=== PATIENT | female | born 1945 | race Caucasian/White ===

== ENCOUNTER 2021-02-19 17:20 | Inpatient (IN) | payer MEDICARE ==
[~2021-02-19] VITALS: Ht 167.6 cm; Wt 56.7 kg
[2021-02-19] MEDS ORDERED: QUET25TA PO (18:20)
[2021-02-19] MEDS ORDERED: LORA-258 PO (18:20)
[2021-02-19] MEDS ORDERED: BLOOD SUGAR DIAGNOSTIC 1 EACH STRIP IN ONE (20:00)
[2021-02-19] MEDS ORDERED: MAGNESIUM HYDROXIDE 30 ML UDC PO PRN (20:00)
[2021-02-19] MEDS ORDERED: ACETAMINOPHEN 325 MG TABLET PO PRN (20:00)
[2021-02-19] MEDS ORDERED: MAG HYDROX/AL HYDROX/SIMETH 30 ML UDC PO PRN (20:00)
[2021-02-19] MEDS ORDERED: LORAZEPAM 0.5 MG TABLET PO PRN (20:00)
[2021-02-19 20:19] VITALS: BP 157/93
[2021-02-19] MEDS ORDERED: LORAZEPAM 1 MG TABLET PO PRN (23:00)
--- NOTE | 2021-02-20 01:03 | NUR ---
GPS RN NOTES: PER HOLD PATIENT WAS CONFUSED, DISORGANIZED, DISORIENTED, TALKING TO SELF, AGGRESSIVE TOWARDS STAFF, VERBALLY ABUSIVE TO STAFF MEMBER, HITTING STAFF WITH HER PURSE, TELLING STAFF THAT THEY ARE COMING TO KILL STAFF MEMBER, NON COMPLIANT WITH MEDICATION, NOT RESPONDING TO REDIRECTION, PARANOID, DELUSIONAL, HAS POOR INSIGHT, POOR JUDGEMENT ANXIOUS AND RESTLESS. UPON FACE TO FACE EVALUATION PATIENT WAS CONFUSED, DISORGANIZED, DISORIENTED, RESTLESS, AGGRESSIVE, HITTING STAFF MEMBER ON THE CHEST, AGITATED, UNCOOPERATIVE, VERY DIFFICULT TO REDIRECTION. PATIENT HAS UNSTEADY GAIT, HIGH FALL RISK. BLADDER AND BOWEL INCONTINENT. PATIENT WAS ADVISED OF HER HOLD. PATIENT IS UNDER THE PSYCH CARE OF DR. MANCIA AND THE MEDICAL CARE OF DR. BOND. PATIENT HANDBOOK GIVEN WITH PATIENT'S RIGHTS AND GUIDE TO PRESCRIPTIONS. PATIENT BELONGINGS WERE INVENTORIED AND CHECKED FOR CONTRABAND. DENIES PAIN OR DISCOMFORT AT THIS TIME. SKIN ASSESSMENT DONE AND WOUND CARE CONSULT ORDERED. PT EVAL CONSULTATION ORDERED. BED IN LOWEST POSITION AND LOCKED WITH SIDE RAILS UP X2. BED ALARM ON AND CALL LIGHT WITHIN REACH. FLUID AND SNACKS GIVEN TOLERATED. WILL CONTINUE TO MONITOR Q15MIN ROUNDS FOR SAFETY, MOOD AND BEHAVIOR.
--- NOTE | 2021-02-20 06:52 | NUR ---
GPS RN CLOSING NOTES: PATIENT IS SITTING IN REAL CHAIR IN HALLWAY. PATIENT SLEPT 1HR THIS SHIFT. NO S/S OF DISTRESS. RESPIRATION EVEN AND UNLABORED WITH EQUAL RISE AND FALL OF THE CHEST ON ROOM AIR. ALL PATIENT CARE NEEDS HAVE BEEN MET ANTICIPATED. WILL CONTINUE TO MONITOR FOR SAFETY, MOOD AND BEHAVIOR AND ENDORSE TO AM SHIFT
[2021-02-20 08:00] VITALS: BP 138/90
--- NOTE | 2021-02-20 08:32 | NUR ---
WOUND CARE CONSULT: PER NURSING STAFF, PT BECOMES AGITATED EASILY. PT SITTING IN CHAIR AT THIS TIME WEARING SLIPPER SOCKS. SPOKE WITH PT REGARDING HER LONG, CURLING TOENAILS, PRESENT ON ADMISSION IN PHOTO. PT STATES WILL SEE DPM HERE BUT NOT TODAY. DR ROY NOTIFIED. RECOMMENDATIONS MADE FOR SKIN PROTECTION. DISCUSSED WITH NURSING STAFF. MD IN AGREEMENT WITH PLAN OF CARE.
[2021-02-20] MEDS ORDERED: Z GUARD REMEDY 2 OZ OINT TP PRN (09:00)
[2021-02-20] MEDS: DIVALPROEX SODIUM 125 MG CAP.SPRINK PO SCH ×2 (13:10→18:19)
--- NOTE | 2021-02-20 13:10 | NUR ---
[facility]
[2021-02-20 16:00] VITALS: BP 153/84
[2021-02-20 20:39] LABS: ALBUMIN 4.3 g/dL (3.4-5.0); BILIRUBIN,TOTAL 0.9 mg/dL (0.2-1.0); CALCIUM, SERUM 10.4 mg/dL (8.5-10.1); CHOLESTEROL 262 mg/dL (<200); CREATININE 0.9 mg/dL (0.6-1.3); HDL CHOLESTEROL 84 mg/dL (40-60); LDL 147 mg/dL (0-99); POTASSIUM 4.1 mmol/L (3.5-5.1); TOTAL PROTEIN, SERUM 7.9 g/dL (6.4-8.2); TRIGLYCERIDES 74 mg/dL (30-150)
[2021-02-20 20:44] VITALS: BP 134/75
[2021-02-20] MEDS: QUETIAPINE FUMARATE 25 MG TABLET PO SCH (21:20)
[2021-02-21 08:00] VITALS: BP 116/68
[2021-02-21] MEDS: DIVALPROEX SODIUM 125 MG CAP.SPRINK PO SCH ×2 (09:36→16:08)
--- NOTE | 2021-02-21 15:13 | NUR ---
Family Contact: VALERIE called Cheri Dias ([phone]) and left a voicemail stating that the VALERIE would like to discuss the pts treatment. Addendum: 02/21/21 at 1627 by VALERIE ERNST ([phone])
--- NOTE | 2021-02-21 15:14 | NUR ---
[facility] Contact: SW contacted [facility] ([phone]) and spoke to Belem (ext [phone]) and discussed that the pt is no longer appropriate for their facility and received some collateral information.
[2021-02-21 16:00] VITALS: BP 115/76
--- NOTE | 2021-02-21 16:00 | NUR ---
Initial Discharge Plan: Pt currently resides at [facility] located at [address] , [place], [place] [address]; ([phone]). Per Belem at the facility, pt may not be able to return depending on her needs. SW will work with the pt and the MD regarding appropriate discharge planning. SW will form a safe and proper discharge.
[2021-02-21 20:08] VITALS: BP 100/63
[2021-02-21] MEDS: QUETIAPINE FUMARATE 25 MG TABLET PO SCH (21:17)
[2021-02-22 08:00] VITALS: BP 106/64
[2021-02-22] MEDS: DIVALPROEX SODIUM 125 MG CAP.SPRINK PO SCH ×2 (08:18→16:22)
--- NOTE | 2021-02-22 09:00 | NUR ---
RN NOTE- PT CONFUSED DISORGANIZED REFUSING RX, PO INTAKE FAIR W ASSIST, POOR EYE CONTACT INTERNALLY PREOCCUPIED,
--- NOTE | 2021-02-22 10:54 | NUR ---
DPOA/Family Contact: Pts DPOA/SON Cheri Dias ([phone]) called the SW and stated that he wanted information on the pts treatment. SW went over the pts diagnosis and medications and informed him that once the pt is considered stable we will discharge her. Pts son stated that he does not want her to return to [facility] and is working with a placement agency to place the pt elsewhere. SW stated that she will assist as much as she can.
[2021-02-22] MEDS: ENSURE ENLIVE 237 ML LIQUID (VANILLA) PO SCH ×2 (12:59→16:22)
[2021-02-22 16:00] VITALS: BP 115/89
--- NOTE | 2021-02-22 16:34 | NUR ---
RN NOTE- REFUSED RX AGAIN. DISORGANIZED INTERNALLY PREOCCUPIED. REALITY ORIENTATION
[2021-02-22 19:59] VITALS: BP 128/86
[2021-02-22] MEDS: QUETIAPINE FUMARATE 25 MG TABLET PO SCH (21:22)
[2021-02-23 08:00] VITALS: BP 122/62
[2021-02-23 08:06] LABS: CREATININE 0.9 mg/dL (0.6-1.3); POTASSIUM 5.1 mmol/L (3.5-5.1)
[2021-02-23] MEDS: ENSURE ENLIVE 237 ML LIQUID (VANILLA) PO SCH ×3 (08:29→16:19)
[2021-02-23] MEDS: DIVALPROEX SODIUM 125 MG CAP.SPRINK PO SCH ×2 (08:29→16:58)
--- NOTE | 2021-02-23 16:34 | NUR ---
RN-CO: Patient refused in and out catheterization for UA test. Encouraged several times but still refused.
[2021-02-23 20:03] VITALS: BP 129/79
[2021-02-23] MEDS: QUETIAPINE FUMARATE 25 MG TABLET PO SCH (21:07)
--- NOTE | 2021-02-24 04:23 | NUR ---
RN-NOTES : UNABLE TO OBTAIN URINE SPECIMEN , PT. REFUSED IN AND OUT CATHETERIZATION FOR UA TEST, ENCOURAGED SEVERAL TIME , BUT PT. STRONGLY REFUSED, PT. BEHAVIOR UNCOOPERTIVE , ANXIOUS , ATIVAN OFFERED,PT. REFUSED , CHARGE NURSE MADE AWARE , WILL CONUTNITY WITH CARE.
[2021-02-24 08:00] VITALS: BP 125/57
[2021-02-24] MEDS: ENSURE ENLIVE 237 ML LIQUID (VANILLA) PO SCH ×3 (08:13→16:23)
[2021-02-24] MEDS: DIVALPROEX SODIUM 125 MG CAP.SPRINK PO SCH ×2 (08:50→16:32)
--- NOTE | 2021-02-24 09:21 | NUR ---
RN-CO: DR MARQUES IS AWRE ABOUT THE BUN 30. I ENCOURAGED PT TO TAKE FLUIDS AND INSTRUCTED THE CNAS TO OFFER FLUIDS Q 2 HOURS.
--- NOTE | 2021-02-24 12:57 | NUR ---
RN-CO: PATIENT ONLY DRINK 20% OF ENSURE AT LUNCH TIME. HOWEVER I OFFERED WATER TO HER.
--- NOTE | 2021-02-24 14:06 | NUR ---
RNTerellCO: OFFERED WATER TO PT.
[2021-02-24 16:00] VITALS: BP 117/60
[2021-02-24 20:00] VITALS: BP 140/93
[2021-02-24 20:35] LABS: BILIRUBIN,URINE NEGATIVE (NEGATIVE); COLOR,URINE YELLOW (YELLOW); LEUKOCYTE ESTERASE ,URINE NEGATIVE (NEGATIVE); NITRITE, URINE NEGATIVE (NEGATIVE); PH,URINE 5.5 (5.0-8.0); PROTEIN,URINE NEGATIVE (NEGATIVE); UGLUCOSE NEGATIVE (NEGATIVE)
[2021-02-24 20:42] LABS: BACTERIA,URINE 1+ /HPF (None Seen); SQUAMOUS EPITHELIAL CELL,UR 0-2 /HPF (None Seen); URINE AMORPHOUS URATE Few /HPF (None Seen); WBC,URINE 0-2 /HPF (0-3)
[2021-02-24] MEDS: QUETIAPINE FUMARATE 25 MG TABLET PO SCH ×2 (21:07→21:16)
--- NOTE | 2021-02-24 21:14 | NUR ---
GPS-RN NOTES: MEDICATION REFUSAL PATIENT SPIT OUT SCHEDULED SEROQUEL DOSE FOR TONIGHT. EDUCATED PATIENT REGARDING MEDICATION COMPLIANCE BUT PATIENT CONTINUED TO REFUSE. WILL CONTINUE TO MONITOR. Addendum: 02/25/21 at 0015 by EDITH MORRISSEY RN SPIT OUT MEDICATION
--- NOTE | 2021-02-24 22:00 | NUR ---
GPS-RN NOTES: PATIENT REFUSED WEEKLY SKIN BODY ASSESSMENT.
[2021-02-25 08:00] VITALS: BP 112/56
[2021-02-25] MEDS: DIVALPROEX SODIUM 125 MG CAP.SPRINK PO SCH ×2 (08:26→17:00)
[2021-02-25] MEDS: ENSURE ENLIVE 237 ML LIQUID (VANILLA) PO SCH ×3 (08:27→17:21)
--- NOTE | 2021-02-25 10:07 | NUR ---
DPOA/Family Contact: Pts DPOA/SON Cheri Dias ([phone]) called the SW and stated that he spent the weekend looking at memory care facilities as well as board and care placements. He stated that he was not sure what would be the most appropriate placement for the pt and SW stated that the pt should start in memory care and if she does really well she can step down to a board and care. Pts son stated that was acceptable and stated that he would have the placement agency that he is working with call the SW to arrange the discharge.
--- NOTE | 2021-02-25 14:25 | NUR ---
Placement Agency Contact: SW contacted Marina Saha ([phone]) from [facility] and discussed the pts placement needs and the timeline for her discharge. She stated that she will send an email to the SW regarding some options.
[2021-02-25 16:00] VITALS: BP 117/86
[2021-02-25 20:00] VITALS: BP 122/90
[2021-02-25] MEDS: QUETIAPINE FUMARATE 25 MG TABLET PO SCH (21:27)
[2021-02-25] MEDS: ZOLPIDEM TARTRATE 5 MG TABLET PO PRN (22:34)
--- NOTE | 2021-02-25 22:34 | NUR ---
GPS-RN NOTES: INSOMNIA PATIENT IS UNABLE TO SLEEP. PRN AMBIEN 5MG PO GIVEN. WILL CONTINUE TO MONITOR.
[2021-02-26 08:00] VITALS: BP 100/59
[2021-02-26] MEDS: ENSURE ENLIVE 237 ML LIQUID (VANILLA) PO SCH ×4 (09:00→17:27)
--- NOTE | 2021-02-26 10:27 | NUR ---
VERY GROGGY AND UNABLE TO ADMINISTER MEDS.
[2021-02-26] MEDS: DIVALPROEX SODIUM 125 MG CAP.SPRINK PO SCH ×3 (11:16→17:27)
[2021-02-26 19:46] LABS: CALCIUM, SERUM 9.4 mg/dL (8.5-10.1); CREATININE 0.8 mg/dL (0.6-1.3); POTASSIUM 4.4 mmol/L (3.5-5.1)
[2021-02-26 20:00] VITALS: BP 125/67
[2021-02-26] MEDS: QUETIAPINE FUMARATE 25 MG TABLET PO SCH ×2 (21:25→21:41)
--- NOTE | 2021-02-26 22:00 | NUR ---
GPS-RN NOTES: MEDICATION REFUSAL PATIENT SPIT OUT SCHEDULED MEDICATION SEROQUEL DOSE FOR TONIGHT. EDUCATED PATIENT REGARDING MEDICATION COMPLIANCE BUT PATIENT CONTINUED TO REFUSE. WILL CONTINUE TO MONITOR.
[2021-02-27] MEDS: ZOLPIDEM TARTRATE 5 MG TABLET PO PRN (00:01)
--- NOTE | 2021-02-27 00:01 | NUR ---
GPS-RN NOTES: INSOMNIA PATIENT IS UNABLE TO SLEEP. PRN AMBIEN 5MG PO GIVEN. WILL CONTINUE TO MONITOR.
[2021-02-27 08:00] VITALS: BP 97/64
[2021-02-27] MEDS: DIVALPROEX SODIUM 125 MG CAP.SPRINK PO SCH ×2 (08:43→17:00)
[2021-02-27] MEDS: ENSURE ENLIVE 237 ML LIQUID (VANILLA) PO SCH ×3 (08:43→17:02)
--- NOTE | 2021-02-27 13:47 | NUR ---
Placement Agency Contact: SW contacted Marina Saha ([phone]) from [facility] and left a voicemail stating that she wanted to follow up and that the SW did not receive any emails.
--- NOTE | 2021-02-27 13:48 | NUR ---
Family Contact: VALERIE contacted the pts son, Cheri Dias ([phone]), and informed him that the pt is going to be ready to be discharged soon and that the SW would like to follow up on the pts discharge. He stated that he was at [facility] for a tour and they accepted the pt. He stated that he will work with them on figuring out when the pt can be released to them. VALERIE also went over the transportation with the pt.
--- NOTE | 2021-02-27 13:57 | NUR ---
Placement Agency Contact: Scottrobi Maria A ([phone]) from [facility] contacted the and stated that she was having [place] fax a physicians report to the . She stated that she is aiming for a Thursday discharge.
[2021-02-27 16:00] VITALS: BP 131/75
--- NOTE | 2021-02-27 17:03 | NUR ---
GPS/RN NOTES PATIENT REFUSED TO TAKE THE SCHEDULE DEPAKOTE 125 MG 1 CAP EXPLAINED THE RISK AND BENEFITS. MEDS WAS OPEN AND WASTED.
--- NOTE | 2021-02-27 17:13 | NUR ---
@1700, ATTEMPTED XRAY. PT UNCOOPERATIVE AND REFUSING XRAY.
--- NOTE | 2021-02-27 17:20 | NUR ---
GPS/RN NOTES PATIENT REFUSED TO TAKE CHEST X-RAY, EXPLAINED THE RISK AND BENEFITS. MD WAS AWARE.
[2021-02-27 20:58] VITALS: BP 125/82
[2021-02-27] MEDS: QUETIAPINE FUMARATE 25 MG TABLET PO SCH (21:10)
[2021-02-28 08:00] VITALS: BP 98/55
[2021-02-28] MEDS: DIVALPROEX SODIUM 125 MG CAP.SPRINK PO SCH ×2 (08:40→16:53)
[2021-02-28] MEDS: ENSURE ENLIVE 237 ML LIQUID (VANILLA) PO SCH ×3 (08:40→16:53)
--- NOTE | 2021-02-28 09:00 | NUR ---
RN NOTE-PT CONFUSED LETHARGIC MUMBLING TO SELF, RAMBLING SENTENCE FRAGMENTS, MED COMPLIANT , PO INTAKE FAIR W ASSIST, NEEDS CONSISTENT HELP W ADLS CARE
--- NOTE | 2021-02-28 12:21 | NUR ---
Family Contact: VALERIE contacted the pts son, Cheri Dias ([phone]), in response to his voicemail and informed him that the pt can be discharged on Thursday if that is more convenient for the facility.
[2021-02-28 16:00] VITALS: BP 124/67
[2021-02-28 20:00] VITALS: BP 131/82
[2021-02-28 20:14] VITALS: BP 131/82
--- NOTE | 2021-02-28 20:48 | NUR ---
RN NOTE PER AM RN REPORT, CXR WAS DONE TODAY BUT HAS NOT RESULTED YET. WILL FOLLOW UP.
[2021-02-28] MEDS: QUETIAPINE FUMARATE 25 MG TABLET PO SCH (21:49)
[2021-03-01 08:00] VITALS: BP 99/58
[2021-03-01] MEDS: ENSURE ENLIVE 237 ML LIQUID (VANILLA) PO SCH ×3 (08:14→16:04)
[2021-03-01] MEDS: DIVALPROEX SODIUM 125 MG CAP.SPRINK PO SCH ×2 (08:14→16:05)
--- NOTE | 2021-03-01 09:00 | NUR ---
RN NOTE- PUSHING FOOD AND FLUIDS. PT CONFUSED LETHARGIC MUMBLING TO SELF, RAMBLING SENTENCE FRAGMENTS, MED COMPLIANT ,PO INTAKE FAIR W ASSIST, NEEDS CONSISTENT HELP W ADLS CARE BECOMES COMBATIVE DURING ADLS CARE
--- NOTE | 2021-03-01 15:28 | NUR ---
Assisted Living Contact: VALERIE faxed a physicians report and a COVID test to [facility] with attn to Analilia to the fax number: [phone].
--- NOTE | 2021-03-01 15:32 | NUR ---
Family Contact: SW contacted the pts son, Cheri Dias ([phone]), and left a voicemail informing him that the pt is going to be discharged on Thursday.
[2021-03-01 15:59] VITALS: BP 117/62
[2021-03-01 20:00] VITALS: BP 137/80
--- NOTE | 2021-03-01 20:19 | NUR ---
GPS RN NOTES PT ON KENN CHAIR BY NURSES STATION. CONTINUES TO BE CONFUSED AND RAMBLING, MED COMPLIANT. VITALS STABLE. ENCOURAGE FOR MORE PO INTAKE
[2021-03-01 20:21] VITALS: BP 133/93
[2021-03-01] MEDS: QUETIAPINE FUMARATE 25 MG TABLET PO SCH (21:37)
[2021-03-01] MEDS: ZOLPIDEM TARTRATE 5 MG TABLET PO PRN (23:53)
[2021-03-02 08:00] VITALS: BP 106/59
[2021-03-02] MEDS: DIVALPROEX SODIUM 125 MG CAP.SPRINK PO SCH ×2 (08:27→16:24)
[2021-03-02] MEDS: ENSURE ENLIVE 237 ML LIQUID (VANILLA) PO SCH ×3 (08:27→16:24)
--- NOTE | 2021-03-02 15:26 | NUR ---
GPS RN NOTE: PATIENT RESTLESS, ANXIOUS GETTING AGITATED ATIVAN 1 MG PO PRN GIVEN PER ORDER WILL CONTINUE MONITORING
[2021-03-02 16:00] VITALS: BP 143/74
[2021-03-02 19:43] VITALS: BP 163/89
[2021-03-02 19:57] VITALS: BP 163/89
[2021-03-02 21:10] VITALS: BP 142/82
[2021-03-02] MEDS: QUETIAPINE FUMARATE 25 MG TABLET PO SCH (22:02)
--- NOTE | 2021-03-02 22:15 | NUR ---
RN NOTE SCHEDULED MEDICINE WAS GIVEN WITH ICE CREAM, PATIENT HAD 1/2 CUP OF ICE CREAM. PATIENT HAS POOR PO INTAKE. CONTINUING TO ENCOURAGE TO HAVE PO FLUIDS TOLERATED.
--- NOTE | 2021-03-02 23:27 | NUR ---
RN NOTE: PATIENT WAS NOTED TO BE SLEEPY IN A REAL CHAIR, ASSISTED HER TO BED, CHANGED HER DIAPER & MADE HER COMFORTABLE, BUT PATIENT REFUSED TO STAY IN BED & STARTED GETTING AGITATED, STAYED WITH THE PATIENT TO PROVIDE REDIRECTIONS TO REST & STAY IN BED DUE TO CONFUSION. PATIENT CONTINUED TO REFUSE TO STAY IN BED, GOT AGITATED, RESTLESS & ATTEMPTED TO STAND UP WITH UNSTEADY GAIT. PATIENT IS A HIGH FALL RISK. ASSISTED HER BACK TO REAL CHAIR FOR SAFETY & FALL PREVENTION. PATIENT IS UNABLE TO UNDERSTAND EXPLANATIONS OR SAFETY AWARENESS INSTRUCTIONS DUE TO BEING EXTREMELY CONFUSED. OFFERED WATER, PATIENT HAD 1/2 CUP OF WATER & THREW THE REST OF WATER ON HER BED. WILL CONTINUE TO ENCOURAGE PO FLUIDS TOLERATED.
[2021-03-03 08:00] VITALS: BP 110/59
[2021-03-03] MEDS: DIVALPROEX SODIUM 125 MG CAP.SPRINK PO SCH ×2 (09:00→17:18)
[2021-03-03] MEDS: ENSURE ENLIVE 237 ML LIQUID (VANILLA) PO SCH ×3 (09:00→17:18)
--- NOTE | 2021-03-03 09:14 | NUR ---
RN NOTE PATIENT IS TO ASLEEP TO HAVE HER MORNING MEDICATIONS DEPAKOTE AND ENSURE, AFTER PATIENT IS MORE AWAKE WILL REASSESS AND ADMINISTER SCHEDULED MEDICATION.
[2021-03-03 16:09] VITALS: BP 136/75
[2021-03-03] MEDS: QUETIAPINE FUMARATE 25 MG TABLET PO SCH (21:30)
--- NOTE | 2021-03-03 21:46 | NUR ---
GPS RN NOTE PATIENT IN GERICHAIR. A/OX1. NOTED WITH CONFUSION AND RAMBLING . PATIENT TOOK PORTION OF DEPAKOTE ORDERED. PATIENT BECAME AGITATED, ATTEMPTING TO HIT RN, AND THREW THE REST MEDICATION AND FOOD ONTO THE FLOOR. ALLOWED PATIENT TO VERBALIZED FEELINGS.
--- NOTE | 2021-03-03 22:00 | NUR ---
GPS RN NOTE PATIENT REFUSED V/S X3. PATIENT COMBATIVE TOWARDS STAFF.
--- NOTE | 2021-03-04 06:43 | NUR ---
GPS RN NOTE PATIENT SLEEPING IN BED. TOES ON BILATERAL FOOT NOTED TO BE YELLOW, CURLED, AND OVERGROWN. TOOK PICTURE AND PUT IN CHART. WILL ENDORSE RN TO CONTINUE TREATMENT ORDERED.
[2021-03-04 08:00] VITALS: BP 113/77
[2021-03-04] MEDS: ENSURE ENLIVE 237 ML LIQUID (VANILLA) PO SCH (08:00)
[2021-03-04] MEDS: DIVALPROEX SODIUM 125 MG CAP.SPRINK PO SCH (08:01)
--- NOTE | 2021-03-04 10:12 | NUR ---
Discharge Note: Pt will be discharged to [facility] located at [address] [place] [id number]; . Pt will be transported via the facility pickup at 11AM. Pts son, Arun ([phone]), was informed and made aware of this discharge. Upon discharge, the pt appears to be in a euthymic mood and presents with a distressed affect. Pt denies both suicidal and homicidal ideation as well as auditory and visual hallucinations. Pt appears to be well groomed and appropriately dressed. Pt appears to be ambulatory with a steady gait. Pt will be under the care of her psychiatrist, Dr. Nilo Toth, located at [address], [place] [address]; ; fax of records was sent to: ([phone]). Pt will also be under the care of her access control specialist, Dr. Taylor, [place] at [address] [place], [address]; . The multidisciplinary exit care form was done, printed, signed, and given to the patient.
== END 2021-03-04 11:30 | DRG 885 ==
LOC: GPS 18:43
PROVIDERS: ADMIT Psychiatry & Neurology Psychiatry; ATTEND Internal Medicine
DX: F29 Unspecified psychosis not due to a substance or known physiological condition (principal); N17.0 Acute kidney failure with tubular necrosis; F03.91 Unspecified dementia, unspecified severity, with behavioral disturbance; F41.9 Anxiety disorder, unspecified; Z73.6 Limitation of activities due to disability; Z79.899 Other long term (current) drug therapy; F32.9 Major depressive disorder, single episode, unspecified; Z91.14 Patient's other noncompliance with medication regimen; Z91.81 History of falling; R79.89 Other specified abnormal findings of blood chemistry; R27.8 Other lack of coordination; R53.1 Weakness
CPT/HCPCS: 36415; 71045-TC; 80048-TC; 80053-TC; 80061-TC; 81001; 82962-TC; 87081-TC; 97116-TC; 97530-TC

== ENCOUNTER 2021-03-08 23:56 | Inpatient (IN) | payer MEDICARE, BC ==
[~2021-03-08] VITALS: Ht 167.6 cm; Wt 56.7 kg
--- NOTE | 2021-03-08 23:59 | NUR ---
PT FROM [facility] FOR GPS ADMIT. PLACED IN GOWN, ON MONITOR, AND PULSE OX. AWAITING ER MD FOR EVAL AND ORDERS.
--- NOTE | 2021-03-09 00:05 | NUR ---
REFUSED TO HAVE TEMP TAKEN
[2021-03-09] MEDS ORDERED: OLANZAPINE 10 MG VIAL IM ONE ×2 (00:30→00:38)
[2021-03-09 00:53] LABS: BASOPHILS % (AUTO) 0.3 % (0.0-2.0); EOSINOPHILS % (AUTO) 1.8 % (0.0-6.0); HEMATOCRIT 37 % (33-45); HEMOGLOBIN 12.4 g/dL (11.5-14.8); LYMPHOCYTES % (AUTO) 28.8 % (20.0-44.0); MEAN CORPUSCULAR HGB CONC 33 g/dl (31.0-36.0); MEAN CORPUSCULAR VOLUME 92 fL (82-100); MONOCYTES # (AUTO) 0.6 /CMM (0.1-1.30); MONOCYTES % (AUTO) 9.2 % (2.0-12.0); NEUTROPHILS # (AUTO) 4.1 /CMM (1.8-8.9); NEUTROPHILS % (AUTO) 59.9 % (43.0-81.0); PLATELET COUNT (AUTO) 247 /CMM (150-450); RED BLOOD CELL COUNT(AUTO) 4.06 MIL/uL (4.0-5.2); WHITE BLOOD COUNT (AUTO) 6.9 K/uL (4.3-11.0)
--- NOTE | 2021-03-09 01:02 | NUR ---
PT PLACED ON 6040 HOLD FOR DANGER TO SELF AND GD @8932
[2021-03-09 01:11] LABS: CARBON DIOXIDE 28 mmol/L (21-32); CHLORIDE 104 mmol/L (98-107); CREATININE 0.7 mg/dL (0.6-1.3); GLUCOSE 93 mg/dL (74-106); POTASSIUM 3.6 mmol/L (3.5-5.1); SODIUM SERUM 141 mmol/L (136-145); UREA NITROGEN, BLOOD 11 mg/dL (7-18)
[2021-03-09 01:16] LABS: ALANINE AMINOTRANSFERASE 22 U/L (12-78); ALBUMIN 3.6 g/dL (3.4-5.0); ALCOHOL, BLOOD < 3 mg/dL (0-0); ALKALINE PHOSPHATASE 93 U/L (46-116); ASPARTATE AMINOTRANSFERASE 23 U/L (15-37); BILIRUBIN,DIRECT 0.2 mg/dL (0.0-0.2); BILIRUBIN,TOTAL 0.5 mg/dL (0.2-1.0); TOTAL PROTEIN, SERUM 6.6 g/dL (6.4-8.2)
[2021-03-09 01:18] LABS: ACETAMINOPHEN 0 ug/ml (10-30)
[2021-03-09] MEDS ORDERED: QUET25TA PO (01:44)
[2021-03-09] MEDS ORDERED: LORA-259 PO ×2 (01:44)
[2021-03-09] MEDS ORDERED: QUET100T PO (01:44)
[2021-03-09] MEDS ORDERED: ZOLP5TAB8 PO (01:44)
[2021-03-09] MEDS ORDERED: DIVA-78 PO (01:44)
--- NOTE | 2021-03-09 01:47 | NUR ---
REPORT GIVEN TO KENN BAXTER. WILL TRANSPORT PT TO ROOM 214.
[2021-03-09 02:40] VITALS: BP 141/82
--- NOTE | 2021-03-09 02:50 | NUR ---
RN NOTE PATIENT'S BLOOD SUGAR IS 87 MG/DL. PATIENT REFUSES TO DRINK ORANGE JUICE BUT HAD APPLE JUICE 240 ML. WILL ENCOURAGE PO FLUIDS TOLERATED.
[2021-03-09] MEDS ORDERED: MAGNESIUM HYDROXIDE 30 ML UDC PO PRN (03:00)
[2021-03-09] MEDS ORDERED: ACETAMINOPHEN 325 MG TABLET PO PRN (03:00)
[2021-03-09] MEDS ORDERED: MAG HYDROX/AL HYDROX/SIMETH 30 ML UDC PO PRN (03:00)
[2021-03-09] MEDS ORDERED: BLOOD SUGAR DIAGNOSTIC 1 EACH STRIP IN ONE (03:30)
--- NOTE | 2021-03-09 03:43 | NUR ---
RN NOTE PATIENT FINISHED 1 JELLO AT THIS TIME.
--- NOTE | 2021-03-09 03:46 | NUR ---
GPS DIRECTOR OF ASSESSMENT NOTES: READMITTED 75 Y/O FEMALE FROM [facility] ON 5150 HOLD FOR DANGER TO OTHERS & GD. PER HOLD PATIENT WAS TALKING IN CIRCLES, COULD NOT RESPOND TO COMMANDS, WAS ADDRESSING THING THAT WAS NOT VISIBLE TO SOMEONE ELSE. PATIENT'S CARE HOME [facility] REPORTS, PATIENT IS AGITATED, ANXIOUS & THROWING THINGS AT OTHERS & NOT FOLLOWING DIRECTIONS. PT. IS ON ATIVAN. UPON FACE TO FACE EVALUATION PATIENT WAS A & O X 1 ONLY, VERY CONFUSED, ANXIOUS, DISORGANIZED, DISORIENTED, RESTLESS, AGGRESSIVE, TRYING TO HIT STAFF WHILE PROVIDING CARE, AGITATED, TALKING TO HERSELF, UNCOOPERATIVE, NOT RESPONDING TO REDIRECTIONS, PARANOID, DELUSIONAL, HAS POOR INSIGHT, POOR JUDGEMENT. PATIENT HAS UNSTEADY GAIT, HIGH FALL RISK. BLADDER AND BOWEL INCONTINENT. PATIENT WAS ADVISED OF HER HOLD. PATIENT IS UNDER THE PSYCH CARE OF DR. MARKS AND THE MEDICAL CARE OF [facility]. PATIENT HANDBOOK GIVEN WITH PATIENT'S RIGHTS AND GUIDE TO PRESCRIPTIONS. PATIENT BELONGINGS WERE INVENTORIED AND CHECKED FOR CONTRABAND. DENIES PAIN OR DISCOMFORT AT THIS TIME. SKIN ASSESSMENT DONE, PICTURES TAKEN AND WOUND CARE CONSULT ORDERED. PT EVAL CONSULTATION ORDERED. BED IN LOWEST POSITION AND LOCKED WITH SIDE RAILS UP X2. BED ALARM ON AND CALL LIGHT WITHIN REACH. WILL CONTINUE TO MONITOR Q15MIN ROUNDS FOR SAFETY, MOOD AND BEHAVIOR.
[2021-03-09] MEDS ORDERED: Z GUARD REMEDY 4 OZ OINT TP PRN (04:30)
--- NOTE | 2021-03-09 04:49 | NUR ---
RN NOTE PATIENT HAD ANOTHER JELLO & CUP OF WATER, TOLERATED WELL. PATIENT NEEDS LOTS OF ENCOURAGEMENT TO ASSIST HER WITH PO INTAKE DUE TO SEVERE CONFUSION. WILL ENDORSE TO AM RN FOR CONTINUITY OF CARE.
[2021-03-09] MEDS: LORAZEPAM 0.5 MG TABLET PO PRN (05:37)
--- NOTE | 2021-03-09 05:39 | NUR ---
RN NOTE: ANXIETY PATIENT IS NOTED TO BE VERY ANXIOUS, RESTLESS, DELUSIONAL, AGITATED, BANGING ON THE REAL CHAIR TRAY. PRN ATIVAN 0.5 MG 1 TAB PO ADMINISTERED. WILL CONTINUE TO MONITOR.
--- NOTE | 2021-03-09 06:25 | NUR ---
RN NOTE PATIENT IS SITTING UP IN A REAL CHAIR, CALM & RELAXED AT THIS TIME. PATIENT REFUSES TO GO TO BED. ATTEMPTED TO PUT PATIENT IN BED BUT PATIENT GOT OUT OF BED. PATIENT HAS UNSTEADY GAIT, FALL RISK, ASSISTED BACK TO REAL CHAIR FOR SAFETY. WILL ENDORSE TO AM RN FOR CONTINUITY OF CARE.
--- NOTE | 2021-03-09 07:01 | NUR ---
RN NOTE: FAMILY NOTIFIED CALLED PATIENT'S DPOA LAURA FREED ([place]) AT [phone] & INFORMED ABOUT PATIENT'S ADMISSION AT GPS UNIT IN ROOM 214-2.
[2021-03-09 08:00] VITALS: BP 133/74
[2021-03-09] MEDS ORDERED: LORA2ORA5 PO (08:08)
[2021-03-09] MEDS ORDERED: MAGN400O6 PO (08:08)
[2021-03-09] MEDS ORDERED: DIVA250T PO (08:08)
[2021-03-09] MEDS: ENSURE ENLIVE CHOC 237 ML CAN PO SCH ×2 (08:37→17:30)
[2021-03-09] MEDS: Z GUARD REMEDY 2 OZ OINT TP SCH (10:02)
--- NOTE | 2021-03-09 12:02 | NUR ---
RN-CO: PER DR TIM CHENEY PT IS FULL CODE UNLESS AGENT WILL DECIDE.
--- NOTE | 2021-03-09 15:39 | NUR ---
Pt. refused for v/s checked.
[2021-03-09 19:55] VITALS: BP 143/74
[2021-03-09 19:56] VITALS: BP 143/74
[2021-03-09 20:00] VITALS: BP 143/74
[2021-03-09] MEDS: DIVALPROEX SODIUM 250 MG TABLET.DR PO SCH (21:00)
--- NOTE | 2021-03-09 21:15 | NUR ---
RN NOTE PATIENT WAS SEEN BY DR. MARQUES & STARTED THE PATIENT ON DEPAKOTE & SEROQUEL. ORDERS NOTED & CARRIED OUT.
--- NOTE | 2021-03-09 21:59 | NUR ---
RN NOTE: MEDICINE REFUSAL PATIENT REFUSED TO TAKE DEPAKOTE 250 MG AT 2100 X 3 DESPITE OF RISKS & BENEFITS EXPLANATIONS. PATIENT IS NON COMPLAINT & UNCOOPERATIVE & EASILY AGITATED AT THIS TIME. MEDICINE WAS WASTED PER PROTOCOL SINCE IT WAS OPENED.
[2021-03-09] MEDS: QUETIAPINE FUMARATE 100 MG TABLET PO SCH (22:35)
[2021-03-10 08:00] VITALS: BP 109/63
[2021-03-10] MEDS: ENSURE ENLIVE CHOC 237 ML CAN PO SCH ×3 (08:16→18:07)
[2021-03-10] MEDS: QUETIAPINE FUMARATE 25 MG TABLET PO SCH (09:23)
[2021-03-10] MEDS: DIVALPROEX SODIUM 250 MG TABLET.DR PO SCH ×2 (09:23→21:51)
[2021-03-10] MEDS: Z GUARD REMEDY 2 OZ OINT TP SCH (09:23)
[2021-03-10] MEDS: QUETIAPINE FUMARATE 100 MG TABLET PO SCH (21:51)
[2021-03-10] MEDS: TEMAZEPAM 7.5 MG CAPSULE PO PRN (21:52)
--- NOTE | 2021-03-10 21:53 | NUR ---
Pt c/o insomnia. Least restrictive measures ineffective. Restoril 7.5 mg po prn given as ordered. Will continue to monitor.
--- NOTE | 2021-03-10 22:55 | NUR ---
Post 1 hr Restoril effective. Pt asleep easy to arouse. Will continue to monitor.
[2021-03-11 08:00] VITALS: BP 145/90
[2021-03-11] MEDS: DIVALPROEX SODIUM 250 MG TABLET.DR PO SCH ×3 (08:28→20:51)
[2021-03-11] MEDS: Z GUARD REMEDY 2 OZ OINT TP SCH (08:28)
[2021-03-11] MEDS: ENSURE ENLIVE CHOC 237 ML CAN PO SCH ×3 (08:28→16:19)
[2021-03-11] MEDS: QUETIAPINE FUMARATE 25 MG TABLET PO SCH ×2 (08:28→13:00)
--- NOTE | 2021-03-11 11:13 | NUR ---
GPS RN NOTES PATIENT REFUSES HER LAB WORK.
--- NOTE | 2021-03-11 14:21 | NUR ---
GPS RN NOTES PATIENT WAS OK TO HAVE SEROQUEL WITH CHOCOLATE PUDDING. AFTER MEDS WERE CRUSHED AND MIXED PATIENT SAID SHE WILL NOT TAKE THEM SINCE IT POISON.
[2021-03-11 16:00] VITALS: BP 121/71
--- NOTE | 2021-03-11 16:23 | NUR ---
Family Contact: VALERIE called the pts son, Arun ([phone]), and discussed the pts placement back to [facility]. Pts son stated that he cannot have the pt be discharged when she is not stable because he is running out of placement so she needs to be stable. VALERIE stated that she will have the MD call him to discuss this.
--- NOTE | 2021-03-11 16:25 | NUR ---
Facility Contact: [facility] and [facility] Luna about the pts readmit. She stated that she will want to evaluate the pt before she is ready for discharge back to their facility. VALERIE stated that she will call her back once there is a discharge date.
--- NOTE | 2021-03-11 16:34 | NUR ---
Psychosocial Note: I, Phoebe Carroll MSW, attest to the patients previous psychosocial information dated on 02/21/21. Update On Events leading to Admission and Discharge Plan: Pt has returned to the geriatric psychiatric unit within a few days of her previous discharge date (03/04/21) to [facility]. Pt is a 75-year-old female who was readmitted to [facility] on 03/09/21 on a 5150 hold for danger to others and grave disability. Per psychiatric hold, the clinician was contacted to the ER to evaluate the pt for bizarre behavior. Upon face to face evaluation, the pt was talking in circles, could not respond to commands, was addressing thing that was not visible to anyone else. Pts assisted living reports that the pt was agitated. Pt was anxious and was throwing things at others and not following directions. Upon social service technician evaluation, pt appears to be oriented x1 (self). Pt appears to be in a depressed mood and presents with a paranoid affect. Pt was mumbling incoherent and appears to be confused and disorganized. Pt presents in a gerichair due to her aggressive outbursts. Pt appears to be unable to answer questions related to the psychosocial. Pt was unable to maintain appropriate eye contact. Pts insight and judgment appear to be impaired and the pts impulse control is poor. Pts son, Arun ([phone]), would like the pt to return to [facility]. VALERIE spoke to the as400 administrator, Luna , who stated that the pt needs to be evaluated before coming back. VALERIE will work with the pt, the pts son, and the MD regarding appropriate discharge planning. SW will form a safe and proper discharge.
[2021-03-11 20:00] VITALS: BP 136/62
[2021-03-11] MEDS: QUETIAPINE FUMARATE 100 MG TABLET PO SCH (21:00)
[2021-03-11] MEDS: TEMAZEPAM 7.5 MG CAPSULE PO PRN (22:47)
--- NOTE | 2021-03-11 22:47 | NUR ---
GPS-RN NOTES: INSOMNIA PATIENT IS UNABLE TO SLEEP. PRN RESTORIL 7.5MG PO GIVEN. WILL CONTINUE TO MONITOR.
[2021-03-12 08:00] VITALS: BP 110/69
--- NOTE | 2021-03-12 08:25 | NUR ---
WOUND CARE CONSULT: PT SLEEPING SOUNDLY AT THIS TIME. PER ADMISSION PHOTOS, PT HAS VERY LONG TOENAILS, PRESENT ON ADMISSION. DR ROY NOTIFIED OF DPM CONSULT. CURRENT JOSE JUAN SCORE IS 17. MD IN AGREEMENT WITH PLAN OF CARE.
[2021-03-12] MEDS: QUETIAPINE FUMARATE 25 MG TABLET PO SCH ×2 (08:48→12:30)
[2021-03-12] MEDS: Z GUARD REMEDY 2 OZ OINT TP SCH (08:48)
[2021-03-12] MEDS: ENSURE ENLIVE CHOC 237 ML CAN PO SCH ×3 (08:48→17:05)
[2021-03-12] MEDS: DIVALPROEX SODIUM 250 MG TABLET.DR PO SCH ×2 (08:48→21:05)
--- NOTE | 2021-03-12 09:00 | NUR ---
RN NOTE- PT CONFUSED, DISORGANIZED GARBLED UNINTELLIGIBLE SPEECH, MED COMPLIANT , QUIET
[2021-03-12 16:00] VITALS: BP 116/76
[2021-03-12 19:49] VITALS: BP 136/93
[2021-03-12] MEDS: QUETIAPINE FUMARATE 100 MG TABLET PO SCH (21:04)
[2021-03-12] MEDS: TEMAZEPAM 7.5 MG CAPSULE PO PRN (23:14)
--- NOTE | 2021-03-12 23:14 | NUR ---
GPS-RN NOTES: INSOMNIA PATIENT IS UNABLE TO SLEEP. PRN RESTORIL 7.5MG PO GIVEN. WILL CONTINUE TO MONITOR.
[2021-03-13 08:00] VITALS: BP 142/64
[2021-03-13] MEDS: ENSURE ENLIVE CHOC 237 ML CAN PO SCH ×3 (08:00→16:26)
--- NOTE | 2021-03-13 09:00 | NUR ---
RN NOTE- UNCHANGED FROM YESTERDAY. PT CONFUSED, DISORGANIZED GARBLED UNINTELLIGIBLE SPEECH, MED COMPLIANT , QUIET
[2021-03-13] MEDS: DIVALPROEX SODIUM 250 MG TABLET.DR PO SCH ×2 (09:10→21:51)
[2021-03-13] MEDS: Z GUARD REMEDY 2 OZ OINT TP SCH (09:10)
[2021-03-13] MEDS: QUETIAPINE FUMARATE 25 MG TABLET PO SCH ×2 (09:10→13:12)
--- NOTE | 2021-03-13 10:38 | NUR ---
Dr. Toth's Office Contact: Faizan ([phone]) from Dr. Toth's office contacted the SW and stated that he wanted an update on the pt so SW stated that she has not shown aggressive behavior but she is agitated here in the hospital. SW stated that she does not have a discharge date as of right now.
--- NOTE | 2021-03-13 12:08 | NUR ---
Family Contact: VALERIE called the pts son, Arun ([phone]), and informed him that the pt was discharged with psychotropic medications at the time of discharge the previous time. VALERIE stated that she will inform him and Yoko when there is a discharge date so that the pt can be assessed and discharged back.
[2021-03-13 16:00] VITALS: BP 114/88
[2021-03-13 20:00] VITALS: BP 158/81
[2021-03-13] MEDS: QUETIAPINE FUMARATE 100 MG TABLET PO SCH (21:51)
[2021-03-13] MEDS: TEMAZEPAM 7.5 MG CAPSULE PO PRN (23:11)
--- NOTE | 2021-03-13 23:11 | NUR ---
GPS-RN NOTES: INSOMNIA PATIENT IS UNABLE TO SLEEP. PRN RESTORIL 7.5MG PO GIVEN. WILL CONTINUE TO MONITOR.
[2021-03-14 08:00] VITALS: BP 108/60
[2021-03-14] MEDS: ENSURE ENLIVE CHOC 237 ML CAN PO SCH ×3 (08:44→16:27)
[2021-03-14] MEDS: QUETIAPINE FUMARATE 25 MG TABLET PO SCH ×2 (08:44→12:16)
[2021-03-14] MEDS: DIVALPROEX SODIUM 250 MG TABLET.DR PO SCH ×2 (08:44→21:39)
[2021-03-14] MEDS: Z GUARD REMEDY 2 OZ OINT TP SCH (08:45)
--- NOTE | 2021-03-14 09:00 | NUR ---
RN NOTE- PT CONFUSED, DISORGANIZED GARBLED UNINTELLIGIBLE SPEECH, MED COMPLIANT , QUIET
[2021-03-14 16:00] VITALS: BP 145/73
[2021-03-14 19:43] VITALS: BP 125/84
[2021-03-14 20:00] VITALS: BP 125/84
[2021-03-14] MEDS: QUETIAPINE FUMARATE 100 MG TABLET PO SCH (21:39)
[2021-03-15 06:37] LABS: BASOPHILS % (AUTO) 0.3 % (0.0-2.0); EOSINOPHILS % (AUTO) 2.5 % (0.0-6.0); HEMATOCRIT 39 % (33-45); HEMOGLOBIN 12.9 g/dL (11.5-14.8); LYMPHOCYTES % (AUTO) 35.6 % (20.0-44.0); MEAN CORPUSCULAR HGB CONC 33 g/dl (31.0-36.0); MEAN CORPUSCULAR VOLUME 93 fL (82-100); MONOCYTES # (AUTO) 0.5 /CMM (0.1-1.30); MONOCYTES % (AUTO) 8.9 % (2.0-12.0); NEUTROPHILS % (AUTO) 52.7 % (43.0-81.0); PLATELET COUNT (AUTO) 175 /CMM (150-450); RED BLOOD CELL COUNT(AUTO) 4.22 MIL/uL (4.0-5.2); WHITE BLOOD COUNT (AUTO) 5.6 K/uL (4.3-11.0)
[2021-03-15 07:05] LABS: BILIRUBIN,TOTAL 0.3 mg/dL (0.2-1.0); CALCIUM, SERUM 8.6 mg/dL (8.5-10.1); CREATININE 0.7 mg/dL (0.6-1.3); POTASSIUM 4.4 mmol/L (3.5-5.1); TOTAL PROTEIN, SERUM 6.1 g/dL (6.4-8.2)
[2021-03-15 08:00] VITALS: BP 157/94
[2021-03-15] MEDS: ENSURE ENLIVE CHOC 237 ML CAN PO SCH ×3 (08:11→17:20)
[2021-03-15] MEDS: DIVALPROEX SODIUM 250 MG TABLET.DR PO SCH ×2 (08:55→21:38)
[2021-03-15] MEDS: QUETIAPINE FUMARATE 25 MG TABLET PO SCH ×3 (08:55→17:20)
[2021-03-15] MEDS: Z GUARD REMEDY 2 OZ OINT TP SCH (08:56)
[2021-03-15] MEDS: LORAZEPAM 0.5 MG TABLET PO PRN (11:38)
--- NOTE | 2021-03-15 11:40 | NUR ---
RN-NOTES NOTED PATIENT AGITATED,ANXIOUS IN THE DAY ROOM. ATIVAN 0.5MG P.O GIVEN PRN ORDER. WILL CONT. MONITORING FOR SAFETY AND BEHAVIOR.
--- NOTE | 2021-03-15 13:05 | NUR ---
RN-NOTES PATIENT THE DAY ROOM UP IN THE REAL CHAIR,CALM NO ACUTE DISTRESS NOTED.
[2021-03-15 16:00] VITALS: BP 140/72
[2021-03-15 20:26] VITALS: BP 130/59
[2021-03-15] MEDS: QUETIAPINE FUMARATE 100 MG TABLET PO SCH (21:38)
[2021-03-16 08:00] VITALS: BP 135/73
[2021-03-16] MEDS: QUETIAPINE FUMARATE 25 MG TABLET PO SCH ×3 (09:32→17:08)
[2021-03-16] MEDS: ENSURE ENLIVE CHOC 237 ML CAN PO SCH ×3 (09:32→17:08)
[2021-03-16] MEDS: DIVALPROEX SODIUM 250 MG TABLET.DR PO SCH ×2 (09:32→21:17)
[2021-03-16] MEDS: Z GUARD REMEDY 2 OZ OINT TP SCH (09:32)
--- NOTE | 2021-03-16 14:00 | NUR ---
RN-NOTES PATIENT WAS TRANSFER TO 308A,A/O TO NAME ONLY,NO ACUTE DISTRESS NOTED. PATIENT'S, CHART AND BELONGS ( [place] WITH THE PATIENT) WAS ENDORSED TO CONSTRUCTION ESTIMATOR.DR. MARKS ( PSYCHIATRIST) AND PATIENT'S SON LAURA [phone] WAS MADE AWARE OF THE TRANSFER.
--- NOTE | 2021-03-16 14:12 | NUR ---
RN NOTE RECEIVED PATIENT FROM GPS. PATIENT IS CURRENTLY LYING IN BED, TALKING TO HERSELF. SITTER AT BEDSIDE. WILL CONTINUE TO MONITOR.
--- NOTE | 2021-03-16 18:44 | NUR ---
MS RN CLOSING NOTE *GPS OVERFLOW* PATIENT CURRENTLY SITTING IN CHAIR, AWAKE, SITTER AT SIDE. A/O X1. PATIENT SPEAKS ABOUT RANDOM THINGS CONSTANTLY - CANNOT CONCENTRATE. PATIENT IS AGGRESSIVE AT TIMES WITH SITTER. AMBULATORY WITH ASSIST - GAIT IS UNSTEADY. SKIN INTACT. NO IV ACCESS. SAFETY MEASURES IMPLEMENTED. WILL ENDORSE TO ARCHITECT IN TRAINING NURSE FOR LUIS.
--- NOTE | 2021-03-16 19:10 | NUR ---
RN NOTES: RECEIVED AWAKE,SITTING ON THE CHAIR, A/0X1 TO SELF ONLY, ORIENTED TO UNIT AND STAFF,INCONTINENT B/B, WITH 1;1 SITTER PRESENT BESIDE HER,NO SIGN OF AGITATION, NOT RESTLESS, NO SIGN OF AGITATION OR ANY AGGRESSIVE BEHAVIOR. -FALL,SAFETY AND ASPIRATION PRECAUTION OBSERVED.ON CLOSE WATCH.
[2021-03-16 20:00] VITALS: BP 132/77
[2021-03-16] MEDS: QUETIAPINE FUMARATE 100 MG TABLET PO SCH (21:17)
--- NOTE | 2021-03-16 21:32 | NUR ---
RN NOTES: ON CLOSE WATCH SITTING ON THE CHAIR,WITH 1;1 SITTER, EXPLAINED TO HER SHE HAS DUE MEDICATION, CRUSHED AND GIVEN WITH PUDDING SHE WAS ABLE TO TAKE HALF OF IT, OTHER HALF SHE SPIT IT OUT. -FALL,SAFETY AND ASPIRATION PRECAUTION OBSERVED.
--- NOTE | 2021-03-16 23:10 | NUR ---
RN NOTES: STILL AWAKE, NEEDS ATTENDED.
--- NOTE | 2021-03-17 02:43 | NUR ---
RN NOTES: -TRANSFERRED BACK TO BED AT AROUND 0030 PER 1;1 SITTER. -ABLE TO SLEEP AND REST, DURING ROUNDS IN DEEP SLEEP, SIDE RAILS UP. -SAFETY PRECAUTION OBSERVED.
--- NOTE | 2021-03-17 06:54 | NUR ---
RN NOTES: ASLEEP IN THE NIGHT, NO TANTRUMS, NO COMBATIVE BEHAVIOR TILL SHE WAKE UP THIS MORNING, SHE PEE ONCE, NO BM, NEEDS ATTENDED.KEPT ON CLOSE WATCH. ENDORSED FOR CONTINUITY OF CARE.
--- NOTE | 2021-03-17 08:00 | NUR ---
MS RN OPENING NOTES RECEIVED PATIENT, AWAKE IN BED. ALERT AND ORIENTED X 1. NO SIGNS OR SYMPTOMS OF DISTRESS NOTED. NO SOB. SITTER PRESENT AT BEDSIDE. SAFETY MEASURES IN PLACE, BED LOCKED AT LOWEST POSITION, SIDE RAILS UP X 2. WILL CONTINUE TO MONITOR PATIENT THROUGHOUT SHIFT.
[2021-03-17] MEDS: ENSURE ENLIVE CHOC 237 ML CAN PO SCH ×3 (09:15→16:51)
[2021-03-17] MEDS: DIVALPROEX SODIUM 250 MG TABLET.DR PO SCH ×2 (09:16→21:55)
[2021-03-17] MEDS: Z GUARD REMEDY 2 OZ OINT TP SCH (09:16)
[2021-03-17] MEDS: QUETIAPINE FUMARATE 25 MG TABLET PO SCH ×3 (09:16→16:38)
--- NOTE | 2021-03-17 13:23 | NUR ---
MS RN NOTES PATIENT IS IN CHAIR WITH SITTER AT BEDSIDE. NOTED WITH AGITATION AND PARANOIA. PER JAVAN COLON, PATIENT THREW FOOD ON THE GROUND AND REFUSED TO EAT. NO SIGNS OF SOB OR DISTRESS. WILL CONTINUE TO MONITOR THROUGHOUT SHIFT.
--- NOTE | 2021-03-17 19:01 | NUR ---
MS RN CLOSING NOTES PATIENT IS AWAKE IN CHAIR, ALERT AND ORIENTED X 4. NO SIGNS OR SYMPTOMS OF DISTRESS OR AGITATION NOTED AT THIS TIME. NO C/O PAIN AT THIS TIME. NO SOB. SAFETY MEASURES IN PLACE, BED LOCKED AT LOWEST POSITION, SIDE RAILS UP X 2. CALL LIGHT IS WITHIN REACH. WILL ENDORSE CONTINUITY OF CARE TO NEXT SHIFT.
--- NOTE | 2021-03-17 19:30 | NUR ---
RN OPENING NOTE PATIENT UP IN THE REAL-CHAIR, PATIENT A/O X 1. PATIENT IS DISORGANIZED AND TANGENTIAL. PATIENT DOES NOT SEEM TO BE IN ACUTE DISTRESS, BREATHING EVEN AND UNLABORED. PATIENT HAS A 1:1 SITTER PRESENT. SAFETY MEASURES IN PLACE: BED IN LOCKED AND LOWEST POSITION, SIDE RAILS UP, HOB ELEVATED, BED ALARM ON. WILL MONITOR PATIENT CLOSELY.
[2021-03-17] MEDS: QUETIAPINE FUMARATE 100 MG TABLET PO SCH (21:54)
[2021-03-17 22:00] VITALS: BP 145/84
--- NOTE | 2021-03-18 06:27 | NUR ---
RN CLOSING NOTE PATIENT IN BED SLEEPING, EASILY AROUSED. PATIENT WAS UNCOOPERATIVE THROUGH THE SHIFT. BREATHING EVEN AND UNLABORED, TOLERATING ROOM AIR. ALL NEEDS MET AND ATTENDED. 1:1 SITTER PRESENT. SAFETY MEASURES MAINTAINED. WILL ENDORSE TO DAY SHIFT NURSE FOR LUIS. Addendum: 03/18/21 at 0703 by INESSA VIVEROS RN PATIENT ON A [address] MARKS
--- NOTE | 2021-03-18 07:33 | NUR ---
MS RN OPENING NOTES RECEIVED PATIENT, AWAKE SITTING UP IN BED. ALERT AND ORIENTED X 1. NO SIGNS OR SYMPTOMS OF DISTRESS NOTED. NO SOB. NO SIGNS OF AGITATION NOTED AT THIS TIME. SITTER PRESENT AT BEDSIDE. SAFETY MEASURES IN PLACE, BED LOCKED AT LOWEST POSITION, SIDE RAILS UP X 2. WILL CONTINUE TO MONITOR PATIENT THROUGHOUT SHIFT.
[2021-03-18] MEDS: QUETIAPINE FUMARATE 25 MG TABLET PO SCH ×3 (07:38→17:07)
[2021-03-18] MEDS: Z GUARD REMEDY 2 OZ OINT TP SCH (08:05)
[2021-03-18] MEDS: ENSURE ENLIVE CHOC 237 ML CAN PO SCH ×3 (08:05→17:07)
[2021-03-18] MEDS: DIVALPROEX SODIUM 250 MG TABLET.DR PO SCH ×3 (08:05→17:07)
--- NOTE | 2021-03-18 18:15 | NUR ---
MS RN NOTES PATIENT TRANSFERRED TO [facility] BED 215-1 WITH STABLE VITAL SIGNS. ALERT AND ORIENTED X 1. NO SOB. NO S/S OF DISTRESS NOTED AT THIS TIME. REPORT GIVEN TO ROBYN GRANT.
--- NOTE | 2021-03-18 18:34 | NUR ---
patient refused ekg. nurse notified. Addendum: 03/18/21 at 1834 by MAGAN BINGHAM RT Amended: Links added.
[2021-03-18 20:00] VITALS: BP 151/73
--- NOTE | 2021-03-18 20:00 | NUR ---
GPS RN NOTE: PATIENT IN BED, IN NO APPARENT DISTRESS, BREATHING EVEN AND UNLABORED. A/O X 1. PATIENT IS DISORGANIZED, TANGENTIAL, AND LABILE. DENIES SI/HI AT THIS TIME. WILL CONTINUE TO MONITOR FOR SAFETY AND BEHAVIOR. FALL PRECAUTIONS IN PLACE. Addendum: 03/18/21 at 2026 by PAM LOERA RN PT IN HALLWAY IN REAL CHAIR NOT IN ROOM.
[2021-03-18] MEDS: QUETIAPINE FUMARATE 100 MG TABLET PO SCH (21:48)
[2021-03-19 08:00] VITALS: BP 110/59
[2021-03-19] MEDS: ENSURE ENLIVE CHOC 237 ML CAN PO SCH ×3 (08:00→17:00)
[2021-03-19] MEDS: QUETIAPINE FUMARATE 25 MG TABLET PO SCH ×4 (08:00→17:00)
[2021-03-19] MEDS: DIVALPROEX SODIUM 250 MG TABLET.DR PO SCH ×4 (08:00→17:01)
[2021-03-19] MEDS: Z GUARD REMEDY 2 OZ OINT TP SCH (08:27)
--- NOTE | 2021-03-19 09:08 | NUR ---
Facility Contact: [facility] and spoke to the assembler small products about leaving a message with Luna about scheduling a reassessment.
--- NOTE | 2021-03-19 09:22 | NUR ---
Family Contact: VALERIE called the pts son, Arun ([phone]), and left a voicemail stating that the VALERIE is in the process of scheduling an assessment with [facility].
--- NOTE | 2021-03-19 11:45 | NUR ---
gps satellite instruction facilitator: notes called padilla (kelly) and made aware re: ekg order today, spoke to him over the phone.
--- NOTE | 2021-03-19 12:07 | NUR ---
Facility Contact: Luna from [facility] contacted the SW and stated that an assessment can be done and VALERIE asked for it to be delayed a few days per MD. Luna stated that the signals officer is going on vacation until Thursday so they will come on Thursday. VALERIE faxed updated notes to [phone].
[2021-03-19 13:43] LABS: BILIRUBIN,URINE NEGATIVE (NEGATIVE); COLOR,URINE YELLOW (YELLOW); LEUKOCYTE ESTERASE ,URINE NEGATIVE (NEGATIVE); NITRITE, URINE NEGATIVE (NEGATIVE); PH,URINE 7.5 (5.0-8.0); PROTEIN,URINE NEGATIVE (NEGATIVE); UGLUCOSE NEGATIVE (NEGATIVE); UROBILINOGEN,URINE 0.2 EU/dL (0.2)
[2021-03-19 13:51] LABS: BACTERIA,URINE Few /HPF (None Seen); RBC,URINE F /HPF (0-2); SQUAMOUS EPITHELIAL CELL,UR Few /HPF (None Seen); WBC,URINE F /HPF (0-3)
--- NOTE | 2021-03-19 14:00 | NUR ---
gps cardiac catheterization technician: notes r.t. here, but pt refused ekg. r.t. to try tomorrow morning.
[2021-03-19 16:00] VITALS: BP 112/61
[2021-03-19 20:00] VITALS: BP 121/55
[2021-03-19] MEDS: QUETIAPINE FUMARATE 100 MG TABLET PO SCH (21:14)
[2021-03-20 08:00] VITALS: BP 128/65
[2021-03-20] MEDS: DIVALPROEX SODIUM 250 MG TABLET.DR PO SCH ×3 (08:00→17:18)
[2021-03-20] MEDS: ENSURE ENLIVE CHOC 237 ML CAN PO SCH ×3 (08:00→17:19)
[2021-03-20] MEDS: QUETIAPINE FUMARATE 25 MG TABLET PO SCH ×3 (08:00→17:18)
[2021-03-20 12:13] LABS: BASOPHILS % (AUTO) 0.3 % (0.0-2.0); EOSINOPHILS % (AUTO) 1.9 % (0.0-6.0); HEMATOCRIT 42 % (33-45); HEMOGLOBIN 13.6 g/dL (11.5-14.8); LYMPHOCYTES # (AUTO) 1.1 /CMM (0.8-4.8); LYMPHOCYTES % (AUTO) 21.7 % (20.0-44.0); MEAN CORPUSCULAR HGB CONC 32 g/dl (31.0-36.0); MEAN CORPUSCULAR VOLUME 93 fL (82-100); MONOCYTES # (AUTO) 0.4 /CMM (0.1-1.30); MONOCYTES % (AUTO) 8.7 % (2.0-12.0); NEUTROPHILS # (AUTO) 3.4 /CMM (1.8-8.9); NEUTROPHILS % (AUTO) 67.4 % (43.0-81.0); PLATELET COUNT (AUTO) 194 /CMM (150-450); RED BLOOD CELL COUNT(AUTO) 4.52 MIL/uL (4.0-5.2)
[2021-03-20] MEDS: Z GUARD REMEDY 2 OZ OINT TP SCH (12:14)
[2021-03-20 12:32] LABS: ALBUMIN 3.4 g/dL (3.4-5.0); BILIRUBIN,TOTAL 0.5 mg/dL (0.2-1.0); CALCIUM, SERUM 8.9 mg/dL (8.5-10.1); CREATININE 0.7 mg/dL (0.6-1.3); MAGNESIUM 2.2 mg/dL (1.8-2.4); POTASSIUM 4.1 mmol/L (3.5-5.1); TOTAL PROTEIN, SERUM 6.8 g/dL (6.4-8.2)
--- NOTE | 2021-03-20 12:58 | NUR ---
Facility Contact: [facility]IE called [facility] and spoke to the guest relations receptionist who stated that she was going to have Luna or Hope call the SW back to do an assessment on Thursday. She stated that they are having a huge event this and Thursday so it may not be achievable.
[2021-03-20 16:00] VITALS: BP 142/64
--- NOTE | 2021-03-20 17:30 | NUR ---
UA OBTAINED AND SENT
[2021-03-20 19:53] VITALS: BP 140/50
[2021-03-20] MEDS: QUETIAPINE FUMARATE 100 MG TABLET PO SCH (21:49)
[2021-03-21 08:00] VITALS: BP 95/54
[2021-03-21] MEDS: QUETIAPINE FUMARATE 25 MG TABLET PO SCH ×3 (08:00→17:18)
[2021-03-21] MEDS: ENSURE ENLIVE CHOC 237 ML CAN PO SCH ×3 (08:50→17:18)
[2021-03-21] MEDS: DIVALPROEX SODIUM 250 MG TABLET.DR PO SCH ×2 (09:36→13:48)
[2021-03-21] MEDS: Z GUARD REMEDY 2 OZ OINT TP SCH (09:36)
--- NOTE | 2021-03-21 09:57 | NUR ---
[facility] Contact: VALERIE faxed updated notes with attn to Nilsa to the fax number: [phone].
--- NOTE | 2021-03-21 14:10 | NUR ---
Family Contact: VALERIE called the pts son, Arun ([phone]), and informed him that [facility] will not be accepting the pt back. He stated that was because the History and Physical states that the pt has schizoaffective disorder and [facility] does not take schizophrenic patients. VALERIE explained that the most recent progress notes do not state that information. VALERIE expressed that [facility] seems to be unwilling to take this patient back and are looking for any reason not to expect this pt back. VALERIE stated that it would be more ideal to search for an alternate facility and recommended [facility] as well as [facility]. VALERIE stated that the pt needs to be discharged soon and therefore the best plan would be to discharge to a SNF until a more permanent placement can be secured. Pts son requested a facility in [facility] and VALERIE stated she will send a referral to [facility].
--- NOTE | 2021-03-21 14:17 | NUR ---
SNF Referral: VALERIE faxed a referral to [facility] with attn to Allie to the fax number: [phone].
--- NOTE | 2021-03-21 15:35 | NUR ---
RN-NOTES DR. MARKS IN THE UNIT AND MADE AWARE OF HOLDING SEROQUEL 50MG P.O IN AM DUE TO LOW BP. RECEIVED VERBAL ORDER OF BP PARAMETER OF HOLD SEROQUEL FOR SBP <90 AND HR<60 ALSO TO CHANGE SEROQUEL 200MG HS TO SEROQUEL 150MG P.O HS AT 2000. NOTED AND CARRIED OUT.
[2021-03-21 16:00] VITALS: BP 154/69
[2021-03-21] MEDS ORDERED: DIVALPROEX SODIUM 500 MG TABLET.DR PO SCH (17:00)
--- NOTE | 2021-03-21 17:15 | NUR ---
RN-NOTES DR. MARKS AGREED TO CHANGE DEPAKOTE DR 500MG TO DEPAKOTE SPRINKLE 500MG P.O. NOTED AND CARRIED OUT.
[2021-03-21] MEDS: MEGESTROL ACETATE 40 MG TABLET PO SCH (17:18)
[2021-03-21] MEDS: DIVALPROEX SODIUM 125 MG CAP.SPRINK PO SCH (17:26)
[2021-03-21] MEDS ORDERED: QUETIAPINE FUMARATE 100 MG TABLET PO SCH ×2 (20:00→22:00)
[2021-03-21 20:23] VITALS: BP 116/55
[2021-03-22] MEDS: TEMAZEPAM 7.5 MG CAPSULE PO PRN (02:16)
--- NOTE | 2021-03-22 06:48 | NUR ---
GPS RN CLOSING NOTE PATIENT A/OX1 TO SELF ONLY. PATIENT IN THE HALLWAY SITTING ON THE GERICHAIR. TOLERATING ROOM AIR WELL WITH NO SOB. NO S/SX OF PAIN OR DISCOMFORT. NO ACUTE DISTRESS NOTED. NEEDS MAXIMUM ASSIST WITH ADLS. SAFETY MEASURES IN PLACE. ALL NEEDS ATTENDED AND ANTICIPATED. WILL ENDORSE MONITORING FOR SAFETY AND BEHAVIOR, AND PLAN OF CARE TO ONCOMING MORNING RN.
[2021-03-22 08:00] VITALS: BP 139/68
[2021-03-22] MEDS ORDERED: DIVALPROEX SODIUM 250 MG TABLET.DR PO SCH (08:00)
[2021-03-22] MEDS: MEGESTROL ACETATE 40 MG TABLET PO SCH ×2 (08:31→17:18)
[2021-03-22] MEDS: QUETIAPINE FUMARATE 25 MG TABLET PO SCH ×3 (08:31→17:18)
[2021-03-22] MEDS: ENSURE ENLIVE CHOC 237 ML CAN PO SCH ×3 (08:32→17:19)
[2021-03-22] MEDS: Z GUARD REMEDY 2 OZ OINT TP SCH (08:36)
--- NOTE | 2021-03-22 11:24 | NUR ---
[facility]: SW received a call from Marina ([phone]), from [facility], who stated that she will reach out to [facility] and let them know that she is involved.
[2021-03-22] MEDS: DIVALPROEX SODIUM 250 MG TABLET.DR PO SCH (12:27)
[2021-03-22 16:00] VITALS: BP 145/61
[2021-03-22] MEDS: DIVALPROEX SODIUM 125 MG CAP.SPRINK PO SCH (17:18)
[2021-03-22] MEDS: QUETIAPINE FUMARATE 100 MG TABLET PO SCH (19:52)
[2021-03-22 20:00] VITALS: BP 139/65
[2021-03-23 08:00] VITALS: BP 157/96
[2021-03-23] MEDS: DIVALPROEX SODIUM 250 MG TABLET.DR PO SCH ×2 (08:04→13:30)
[2021-03-23] MEDS: QUETIAPINE FUMARATE 25 MG TABLET PO SCH ×3 (08:04→16:29)
[2021-03-23] MEDS: MEGESTROL ACETATE 40 MG TABLET PO SCH ×2 (08:04→16:29)
[2021-03-23] MEDS: ENSURE ENLIVE CHOC 237 ML CAN PO SCH ×3 (08:04→16:31)
[2021-03-23] MEDS: Z GUARD REMEDY 2 OZ OINT TP SCH (10:15)
[2021-03-23 16:00] VITALS: BP 104/64
[2021-03-23] MEDS: DIVALPROEX SODIUM 125 MG CAP.SPRINK PO SCH (16:29)
[2021-03-23 20:00] VITALS: BP 93/65
[2021-03-23] MEDS: QUETIAPINE FUMARATE 100 MG TABLET PO SCH (20:15)
[2021-03-23 22:00] VITALS: BP 115/70
[2021-03-24 08:00] VITALS: BP 118/59
[2021-03-24] MEDS: ENSURE ENLIVE CHOC 237 ML CAN PO SCH ×3 (08:55→16:14)
[2021-03-24] MEDS: DIVALPROEX SODIUM 250 MG TABLET.DR PO SCH ×2 (08:56→12:42)
[2021-03-24] MEDS: QUETIAPINE FUMARATE 25 MG TABLET PO SCH ×3 (08:56→16:13)
[2021-03-24] MEDS: Z GUARD REMEDY 2 OZ OINT TP SCH (08:56)
[2021-03-24] MEDS: MEGESTROL ACETATE 40 MG TABLET PO SCH ×2 (08:56→16:13)
[2021-03-24 16:00] VITALS: BP 140/74
[2021-03-24] MEDS: DIVALPROEX SODIUM 125 MG CAP.SPRINK PO SCH (16:14)
[2021-03-24] MEDS: QUETIAPINE FUMARATE 100 MG TABLET PO SCH (20:31)
[2021-03-24] MEDS: TEMAZEPAM 7.5 MG CAPSULE PO PRN (23:08)
--- NOTE | 2021-03-24 23:08 | NUR ---
GPS-RN NOTES: INSOMNIA PATIENT IS UNABLE TO SLEEP. PRN RESTORIL 7.5MG PO GIVEN. WILL CONTINUE TO MONITOR.
[2021-03-25 01:05] VITALS: BP_SYST 130
[2021-03-25 08:00] VITALS: BP 113/60
[2021-03-25] MEDS: ENSURE ENLIVE CHOC 237 ML CAN PO SCH ×3 (08:41→17:25)
[2021-03-25] MEDS: MEGESTROL ACETATE 40 MG TABLET PO SCH ×2 (08:41→17:24)
[2021-03-25] MEDS: DIVALPROEX SODIUM 250 MG TABLET.DR PO SCH ×2 (08:41→12:38)
[2021-03-25] MEDS: QUETIAPINE FUMARATE 25 MG TABLET PO SCH ×3 (08:41→17:24)
[2021-03-25] MEDS: Z GUARD REMEDY 2 OZ OINT TP SCH (08:42)
--- NOTE | 2021-03-25 11:40 | NUR ---
GPS RN NOTES PATIENT REFUSED LABS FOR THE SECOND TIME.
--- NOTE | 2021-03-25 12:20 | NUR ---
Family Contact: SW called the pts son, Arun ([phone]), and informed him that the pt was accepted to [facility] and will be discharged today.
--- NOTE | 2021-03-25 12:32 | NUR ---
Discharge Note: Pt will be discharged to [facility] ([facility]) located at [address] [place] [id number]; ([phone]). Pt will be transported via [facility] at 3pm. Pts son, Arun ([phone]), has been informed. Upon discharge, the pt appears to be in a depressed mood and presents with a distressed and anxious affect. Pt appears to be alert and oriented x4 (time, place, self and situation). Pt denies both suicidal and homicidal ideation as well as auditory and visual hallucinations. Pt will be under the care of her psychiatrist, Dr. Booth, located at [address] [place] [address]; and head of advertising, Dr. Mcdonald, located at [address] [place] [address] [address], [place] [address]; . Pt signed the Choice of Vendor and the multidisciplinary exit care form was done, printed, signed, and given to the patient.
[2021-03-25 14:14] LABS: BASOPHILS % (AUTO) 0.3 % (0.0-2.0); EOSINOPHILS % (AUTO) 1.8 % (0.0-6.0); HEMATOCRIT 39 % (33-45); HEMOGLOBIN 12.8 g/dL (11.5-14.8); LYMPHOCYTES # (AUTO) 1.2 /CMM (0.8-4.8); LYMPHOCYTES % (AUTO) 23.1 % (20.0-44.0); MEAN CORPUSCULAR HGB CONC 33 g/dl (31.0-36.0); MEAN CORPUSCULAR VOLUME 93 fL (82-100); MONOCYTES # (AUTO) 0.4 /CMM (0.1-1.30); MONOCYTES % (AUTO) 8.3 % (2.0-12.0); NEUTROPHILS # (AUTO) 3.5 /CMM (1.8-8.9); NEUTROPHILS % (AUTO) 66.5 % (43.0-81.0); PLATELET COUNT (AUTO) 185 /CMM (150-450); RED BLOOD CELL COUNT(AUTO) 4.19 MIL/uL (4.0-5.2); WHITE BLOOD COUNT (AUTO) 5.3 K/uL (4.3-11.0)
[2021-03-25 14:26] LABS: BILIRUBIN,TOTAL 0.2 mg/dL (0.2-1.0); CALCIUM, SERUM 8.6 mg/dL (8.5-10.1); CREATININE 0.7 mg/dL (0.6-1.3); POTASSIUM 4.1 mmol/L (3.5-5.1)
[2021-03-25 15:51] VITALS: BP 109/57
[2021-03-25] MEDS: DIVALPROEX SODIUM 125 MG CAP.SPRINK PO SCH (17:25)
--- NOTE | 2021-03-25 19:34 | NUR ---
GPS RN NOTES EMT WAS HERE AND WERE READY TO CHILD NUTRITION MANAGER THE PATIENT. PATIENT GOT AGITATED AND DID NOT WANT HER VITAL SIGNS TAKEN. WHEN THEY WERE ABLE TO CHECK HER VITALS EVERYTHING WAS OK EXCEPT HEART RATE. HR ELEVATED AT 144 EMT CALLED THE FACILITY AND RN AT THE FACILITY REFUSED TO TAKE PATIENT WITH ELEVATED HEART RATE. PER FACILITY, THEY WILL TAKE HER WHEN HR IS BELOW 100. MD CONTACTED AND MADE AWARE. ORDERS GIVEN TO NIGHT TIME CHARGE NURSE. PATIENT ENDORSED TO SHADE CUTTER RN.
[2021-03-25 20:00] VITALS: BP 138/67
[2021-03-25] MEDS: QUETIAPINE FUMARATE 100 MG TABLET PO SCH (20:00)
--- NOTE | 2021-03-25 20:45 | NUR ---
GPS RN NOTES: PATIENT WAS TO BE DISCHARGED TODAY BUT UPON ARRIVAL OF THE AMBULANCE FOR PLATING AND POINT ASSEMBLY SUPERVISOR AT 1900, PATIENT HR WAS 148, AFTER 3 ATTEMPTS PATIENT HR WAS STILL READING 145BPM, SO THEY REFUSED TO PLATING AND POINT ASSEMBLY SUPERVISOR PATIENT PER FACILITY RULE. DR MARKS AND DR MARQUES NOTIFIED. DR MARKS ASKED THAT PATIENT 2000 SEROQUEL BE HELD AND ORDERED AN EKG.
[2021-03-25] MEDS: LORAZEPAM 0.5 MG TABLET PO PRN (20:58)
--- NOTE | 2021-03-25 20:59 | NUR ---
GPS RN NOTES: PATIENT IS AGITATED, RESTLESS, REFUSING REDIRECTION. ATIVAN 0.5MG 1TAB GIVEN PO PRN ORDERED. WILL CONTINUE TO MONITOR.
--- NOTE | 2021-03-25 22:00 | NUR ---
GPS RN NOTES: DR MARQUES CAME AND ASSESSED PATIENT AFTER READING PATIENT EKG RESULT. PER SHELLI, CONTINUE TO MONITOR PATIENT HR BUT IF HR REMAINS AT 145BPM TRANSFER PATIENT TO MS. WILL CONTINUE TO MONITOR.
--- NOTE | 2021-03-25 23:20 | NUR ---
GPS RN NOTES: PER ADONIAN, CONTINUE TO MONITOR HR AND TRANSFER TO ME IF HR REMAIN AROUND 145BPM. PATIENT CURRENT V/S BP123/70, P86 R17, T97.1, O2 99%.
[2021-03-26 08:00] VITALS: BP 133/76
[2021-03-26] MEDS: ENSURE ENLIVE CHOC 237 ML CAN PO SCH ×3 (08:00→17:00)
--- NOTE | 2021-03-26 08:15 | NUR ---
Family Contact: VALERIE called the pts son, Arun ([phone]), and informed him that the pt did not leave the prior day due to an elevated heart rate. VALERIE stated that the pts MD is changing the medications and once the pt is stable we will plan to discharge her to the facility.
--- NOTE | 2021-03-26 09:00 | NUR ---
gps spinner concrete pipe: notes pt refused breakfast and am meds at this time. reality orientation provided prn. will continue to monitor.
--- NOTE | 2021-03-26 10:00 | NUR ---
gps metal furniture glazier: notes seen by dr. mccoy and meds adjusted. pt still sleeping, but arousable. pt is on 5250 hold and d'c planning has been cancelled.
[2021-03-26] MEDS: DIVALPROEX SODIUM 250 MG TABLET.DR PO SCH ×2 (11:49→17:25)
[2021-03-26] MEDS: MEGESTROL ACETATE 40 MG TABLET PO SCH ×2 (11:50→17:26)
[2021-03-26] MEDS: METOPROLOL TARTRATE 25 MG TABLET PO SCH (11:50)
[2021-03-26] MEDS: Z GUARD REMEDY 2 OZ OINT TP SCH (11:52)
[2021-03-26] MEDS: OLANZAPINE 2.5 MG TABLET PO SCH ×2 (12:30→17:26)
[2021-03-26] MEDS: busPIRone 5 MG TABLET PO SCH ×2 (12:30→17:25)
[2021-03-26 16:00] VITALS: BP 129/56
[2021-03-26 20:00] VITALS: BP 132/71
[2021-03-26] MEDS ORDERED: OLANZAPINE 2.5 MG TABLET PO SCH (21:00)
[2021-03-26] MEDS: LORAZEPAM 0.5 MG TABLET PO PRN (22:22)
--- NOTE | 2021-03-26 22:22 | NUR ---
GPS RN NOTE - ATIVAN PATIENT NOTED WITH AGITATION AND RESTLESSNESS. ADMINISTERED ATIVAN ORDERED. WILL CONTINUE TO MONITOR BEHAVIOR
--- NOTE | 2021-03-27 05:39 | NUR ---
GPS RN CLOSING NOTE PATIENT SLEEPING IN REAL-CHAIR A/OX1. TOLERATING ROOM AIR WELL WITH NO SOB. UNCOOPERATIVE AND COMBATIVE WITH CARE. NO SI/HI AT THIS TIME. DENIES PAIN / DISCOMFORT AT THIS TIME. SAFETY MEASURES IN PLACE: BED IN LOWEST LOCKED POSITION, SIDE RAILS UPX3, EDUCATED TO USE CALL LIGHT, BED ALARMS ON. ALL NEEDS ATTENDED AND ANTICIPATED. WILL ENDORSE CARE PLAN FOR MONITORING FOR SAFETY AND BEHAVIOR TO MORNING RN.
--- NOTE | 2021-03-27 07:30 | NUR ---
PT RECEIVED RESTING COMFORTABLY IN GERICHAIR. NO S/S OR C/O PAIN OR DISTRESS NOTED. WILL CONTINUE PLAN OF CARE
[2021-03-27 08:00] VITALS: BP 135/77
[2021-03-27] MEDS: busPIRone 5 MG TABLET PO SCH ×3 (09:07→16:37)
[2021-03-27] MEDS: DIVALPROEX SODIUM 250 MG TABLET.DR PO SCH (09:07)
[2021-03-27] MEDS: MEGESTROL ACETATE 40 MG TABLET PO SCH ×2 (09:07→16:37)
[2021-03-27] MEDS: OLANZAPINE 2.5 MG TABLET PO SCH ×2 (09:07→16:37)
[2021-03-27] MEDS: METOPROLOL TARTRATE 25 MG TABLET PO SCH (09:08)
[2021-03-27] MEDS: ENSURE ENLIVE CHOC 237 ML CAN PO SCH ×3 (09:21→16:38)
[2021-03-27] MEDS: Z GUARD REMEDY 2 OZ OINT TP SCH (09:21)
[2021-03-27] MEDS: DIVALPROEX SODIUM 125 MG TABLET.DR PO SCH ×2 (12:49→16:37)
[2021-03-27 16:00] VITALS: BP 115/54
--- NOTE | 2021-03-27 18:35 | NUR ---
CHANGE OF SHIFT REPORT PT RESTING COMFORTABLY IN GERICHAIR. NO S/S OR C/O PAIN OR DISTRESS NOTED. PT KEPT CLEAN, DRY AND COMFORTABLE. NO SIGNIFICANT CHANGES SINCE PREVIOUS SHIFT. WILL GIVE REPORT TO KATT CARLSON.
[2021-03-27] MEDS: OLANZAPINE 5 MG TABLET PO SCH (20:33)
[2021-03-27] MEDS: TEMAZEPAM 7.5 MG CAPSULE PO PRN (21:31)
--- NOTE | 2021-03-27 21:32 | NUR ---
GPS RN NOTES: RESTORIL 7.5MG 1CAP GIVEN PO PRN ORDERED FOR SLEEP AT 3. WILL CONTINUE TO MONITOR.
[2021-03-27] MEDS ORDERED: OLANZAPINE 2.5 MG TABLET PO PRN (22:30)
--- NOTE | 2021-03-28 06:41 | NUR ---
GPS RN CLOSING NOTES: PATIENT IS SLEEPING COMFORTABLY IN BED. PATIENT SLEPT 6HRS THIS SHIFT. PATIENT WAS COMPLIANT WITH MEDICATION THIS SHIFT. NO S/S OF DISTRESS. RESPIRATION EVEN AND UNLABORED WITH EQUAL RISE AND FALL OF THE CHEST ON ROOM AIR. ALL PATIENT CARE NEEDS HAVE BEEN MET ANTICIPATED. WILL CONTINUE TO MONITOR FOR SAFETY, MOOD AND BEHAVIOR AND ENDORSE TO AM SHIFT.
[2021-03-28 08:00] VITALS: BP 91/65
[2021-03-28] MEDS: busPIRone 5 MG TABLET PO SCH ×3 (08:23→16:39)
[2021-03-28] MEDS: MEGESTROL ACETATE 40 MG TABLET PO SCH ×2 (08:23→16:39)
[2021-03-28] MEDS: ENSURE ENLIVE CHOC 237 ML CAN PO SCH ×3 (08:23→16:38)
[2021-03-28] MEDS: DIVALPROEX SODIUM 125 MG TABLET.DR PO SCH ×3 (08:23→16:39)
[2021-03-28] MEDS: OLANZAPINE 2.5 MG TABLET PO SCH ×2 (08:24→16:39)
[2021-03-28] MEDS: METOPROLOL TARTRATE 25 MG TABLET PO SCH (08:24)
[2021-03-28] MEDS: Z GUARD REMEDY 2 OZ OINT TP SCH (08:24)
--- NOTE | 2021-03-28 09:00 | NUR ---
RN NOTE- PT OPPOSITIONAL TO CARE THOUGH MED COMPLIANT W CRUSHED MEDS IN PUDDING, CONFUSED DISORGANIZED DISHEVELED. ASSISTANCE REQUIRED W ALL CARE MEALS RX
[2021-03-28 16:00] VITALS: BP 113/68
[2021-03-28 19:37] VITALS: BP 148/67
[2021-03-28 20:59] LABS: BASOPHILS % (AUTO) 0.3 % (0.0-2.0); EOSINOPHILS % (AUTO) 2.7 % (0.0-6.0); HEMATOCRIT 42 % (33-45); HEMOGLOBIN 13.8 g/dL (11.5-14.8); LYMPHOCYTES # (AUTO) 1.5 K/uL (0.8-4.8); MEAN CORPUSCULAR HGB CONC 33 g/dl (31.0-36.0); MEAN CORPUSCULAR VOLUME 93 fL (82-100); MONOCYTES # (AUTO) 0.9 K/uL (0.1-1.30); MONOCYTES % (AUTO) 11.3 % (2.0-12.0); NEUTROPHILS # (AUTO) 5.2 K/uL (1.8-8.9); NEUTROPHILS % (AUTO) 66.7 % (43.0-81.0); PLATELET COUNT (AUTO) 216 K/uL (150-450); RED BLOOD CELL COUNT(AUTO) 4.57 MIL/uL (4.0-5.2); WHITE BLOOD COUNT (AUTO) 7.8 K/uL (4.3-11.0)
[2021-03-28 21:12] LABS: ALBUMIN 3.5 g/dL (3.4-5.0); BILIRUBIN,TOTAL 0.3 mg/dL (0.2-1.0); CALCIUM, SERUM 9.1 mg/dL (8.5-10.1); CREATININE 0.9 mg/dL (0.6-1.3); MAGNESIUM 2.1 mg/dL (1.8-2.4); POTASSIUM 4.6 mmol/L (3.5-5.1); TOTAL PROTEIN, SERUM 7.3 g/dL (6.4-8.2)
[2021-03-28] MEDS: OLANZAPINE 5 MG TABLET PO SCH (21:46)
[2021-03-28] MEDS: TEMAZEPAM 7.5 MG CAPSULE PO PRN (22:21)
--- NOTE | 2021-03-28 22:21 | NUR ---
GPS RN NOTES: RESTORIL 7.5MG 1CAP GIVEN PO PRN ORDERED FOR SLEEP AT 1. WILL CONTINUE TO MONITOR.
--- NOTE | 2021-03-29 06:46 | NUR ---
GPS RN CLOSING NOTES: PATIENT IS SLEEPING COMFORTABLY IN BED. PATIENT SLEPT 7HRS THIS SHIFT. PATIENT CLEANED AND G-GUARD CREAM APPLIED TO SACRAL AREA AT 0620. PATIENT IS SCHEDULED TO BE DISCHARGED TODAY AT 0800. COVID(-). NO S/S OF DISTRESS. RESPIRATION EVEN AND UNLABORED WITH EQUAL RISE AND FALL OF THE CHEST ON ROOM AIR. ALL PATIENT CARE NEEDS HAVE BEEN MET ANTICIPATED. WILL CONTINUE TO MONITOR FOR SAFETY, MOOD AND BEHAVIOR AND ENDORSE TO AM SHIFT.
[2021-03-29 08:00] VITALS: BP 108/60
[2021-03-29 08:24] VITALS: BP 108/60
[2021-03-29] MEDS: OLANZAPINE 2.5 MG TABLET PO SCH (08:24)
[2021-03-29] MEDS: MEGESTROL ACETATE 40 MG TABLET PO SCH (08:24)
[2021-03-29] MEDS: busPIRone 5 MG TABLET PO SCH (08:24)
[2021-03-29] MEDS: METOPROLOL TARTRATE 25 MG TABLET PO SCH (08:24)
[2021-03-29] MEDS: DIVALPROEX SODIUM 125 MG TABLET.DR PO SCH (08:24)
[2021-03-29] MEDS: ENSURE ENLIVE CHOC 237 ML CAN PO SCH (08:25)
[2021-03-29] MEDS: Z GUARD REMEDY 2 OZ OINT TP SCH (08:25)
--- NOTE | 2021-03-29 09:40 | NUR ---
GPS/RN PT DISCHARGE TO [facility] VIA FACILITY PRIVATE TRANSPORTATION. PT REFUSED TO SIGN D/C PAPERWORK. PROPERTY RETURNED, VSS NO ACUTE DISTRESS NOTED. NO SI OR HI AT THE TIME OF DISCHARGE REPORTED. Addendum: 03/29/21 at 1208 by JAMES PIKE RN REFUSED TO LET THE NURSE TO DO PICTURES ON D/C
--- NOTE | 2021-03-29 15:40 | NUR ---
Discharge Note: Pt will be discharged to [facility] ([facility]) located at [address] [place] [id number]; ([phone]). Pt will be transported via [facility] at 8am. Pts son, Arun ([phone]), has been informed. Upon discharge, the pt appears to be in a depressed mood and presents with a distressed and anxious affect. Pt appears to be alert and oriented x4 (time, place, self and situation). Pt denies both suicidal and homicidal ideation as well as auditory and visual hallucinations. Pt will be under the care of her psychiatrist, Dr. Booth, located at [address] [place] [address]; and electrician underground, Dr. Mcdonald, located at [address], [place] [address]; . Pt signed the Choice of Vendor and the multidisciplinary exit care form was done, printed, signed, and given to the patient.
== END 2021-03-29 09:40 | DRG 885 ==
LOC: ER 23:58 → GPS 03-09 01:47 → GPSOV 03-16 13:58 → GPS 03-18 18:15
PROVIDERS: ADMIT Psychiatry & Neurology Psychiatry; ATTEND Nurse Practitioner Acute Care
DX: F29 Unspecified psychosis not due to a substance or known physiological condition (principal); F03.91 Unspecified dementia, unspecified severity, with behavioral disturbance; E44.1 Mild protein-calorie malnutrition; I47.1 Supraventricular tachycardia; F25.9 Schizoaffective disorder, unspecified; Z73.6 Limitation of activities due to disability; F41.9 Anxiety disorder, unspecified; M20.41 Other hammer toe(s) (acquired), right foot; M20.42 Other hammer toe(s) (acquired), left foot
CPT/HCPCS: 36415; 80048-TC; 80053-TC; 80076-TC; 80164-TC; 81001; 82962-TC; 83735-TC; 85025-TC; 87081-TC; 87086-TC; 94799-TC; 97116-TC; 97530-TC; C9803; G0480; J3490